=== PATIENT | male | born 1950 | race Caucasian/White ===

== ENCOUNTER 2017-04-19 05:55 | Inpatient (IN) | payer OTHER ==
--- NOTE | 2017-04-18 11:36 | GHP ---
[f rep st] PREOP HISTORY AND PHYSICAL DATE OF ADMISSION: 04/19/2017 HISTORY: The patient is a pleasant 66-year-old gentleman well known to my practice. He is almost 4 years status post a revision lumbar surgery in which I removed the right L5 and S1 pedicle screws, explored the fusion, and then he underwent an L2-3 and L3-4 laminectomy with TLIF and posterior re-i nstrumentation on the left from L2-S1 and on the right L2-L4. Postoperatively, the patient did very well and states his preoperative pain resolved well. He was doing overall quite good until about a year ago he began having bilateral lower extremity weakness, worse with ambulation. He has noticed a very forward flexed position and posture. He has denied loss of bowel and bladder control. He h as significant bilateral leg pain, and on a 1-10 scale rates it between a 2 and a 9. He has tried n onoperative treatments that have not given him any relief. His MRI shows severe junctional spinal s tenosis at L1-2, at the level of the conus medullaris and beginning of the cauda equina. The other levels below were well decompressed and fused. The patient is being admitted for revision surgery, and add on of decompression laminectomy L1-2 with TLIF, and then posterior fusion with add on of ins trumentation from L1-S1 on the left and L1-L4 on the right. SOCIAL HISTORY: Negative for tobacco, and positive for use of alcohol. Patient lives in [facility]. FAMILY HISTORY: Diabetes mellitus and heart disease. PAST MEDICAL HISTORY: Sleep apnea, in which he uses CPAP, hyperlipidemia. PAST SURGICAL HISTORY: Significant for a prior L4-S1 laminectomy posterior fusion with instrumentat ion and TLIF by another surgeon, as well as an L2-L4 laminectomy TLIF with posterior instrumentation by me 4 years ago. ALLERGIES: Sulfa. MEDICATIONS: Zyrtec and Tylenol. PHYSICAL EXAM: The patient is 5 feet 7 inches tall and weighs 188 pounds. GENERAL: He is alert an d oriented x3. CARDIAC: Regular rate and rhythm without detectable murmur, rub or gallop. LUNGS: Clear to auscultation. ABDOMEN: Benign with good bowel sounds throughout. NEUROLOGIC: Exam show s his strength of bilateral lower extremities to be 5/5 throughout, with the exception of the right plantar flexors are 4+/5. Extension of the lumbar spine worsens his symptoms. He has a very forwar d flexed gait. Sensation is diminished in the posterior left thigh. There is no clonus, and toes a re downgoing on Babinski bilaterally. Straight leg raising is negative x2. Lumbar wound is well he aled without signs of infection. IMAGING: MRI shows severe junctional stenosis at L1-2. He has what appears to be a good solid fusi on from L2-S1, with instrumentation intact. IMPRESSION: 1. Junctional severe spinal stenosis, L1-2. 2. Neurogenic claudication bilateral lower extremities. 3. Status post 2 prior lumbar surgeries, with most recent being L2-S1 posterior instrumentation and L2-L4 TLIF. PLAN: The patient will undergo a revision surgery in the form of an L1-2 laminectomy transforaminal lumbar interbody fusion and add on to the left L2-S1 and right L2-L4 instrumentation posteriorly. He will need rehabilitation and possibly SNF postoperatively, as he is living alone, getting a divor ce, and does not have any assistance postoperatively. Potential risks, benefits, possible complicat ions have been discussed with the patient including, but not limited to, dural tear with CSF leak, m eningitis, nerve root injury, partial or complete paralysis, infection, need for further surgery, ju nctional breakdown, DVT, PE, pneumonia, stroke, heart attack, hemorrhage, blindness, and . Naima patel's questions have been answered thoroughly. He will be n.p.o. after midnight tonight. /[id number]/MODL
[2017-04-19] MEDS ORDERED: LIDOCAINE 1% 2 ML INJ ONE (06:40)
[2017-04-19] MEDS ORDERED: THROMBIN (BOVINE) 20,000 UNIT VIAL TP ONE (06:50)
[2017-04-19] MEDS ORDERED: BACITRACIN 50,000 UNITS/10 ML SYR IRR ONE (06:50)
[2017-04-19] MEDS ORDERED: CITRATE DEXTROSE SOLN 500 ML BAG ONE (06:50)
[2017-04-19] MEDS ORDERED: BUPIVACAINE 0.25% 30 ML SDV ONE (06:50)
[2017-04-19] MEDS ORDERED: AVITENE POWDER 1 GM JAR TP ONE (06:50)
[2017-04-19] MEDS ORDERED: LR 1,000 ML IV ONE (06:57)
[2017-04-19] MEDS ORDERED: LIDOCAINE 1% 5 ML SDV ID PRN (06:57)
[2017-04-19] MEDS ORDERED: GENTAMICIN 80 MG/NACL 100 ML IV ONE (07:00)
[2017-04-19] MEDS ORDERED: ceFAZolin 2 GM/DEXTROSE 100 ML IV ONE (07:00)
[2017-04-19] MEDS ORDERED: REMIFENTANIL HCL 1 MG VIAL ONE ×2 (07:04→09:25)
[2017-04-19] MEDS ORDERED: PROPOFOL 200 MG/20 ML VIAL ONE (07:04)
[2017-04-19] MEDS ORDERED: fentaNYL 100 MCG/2 ML INJ ONE ×2 (07:04→09:38)
[2017-04-19] MEDS ORDERED: PROPOFOL/EMULSION 500 MG/50 ML BOTTLE IV ONE ×2 (07:04→09:26)
[2017-04-19] MEDS ORDERED: MIDAZOLAM 2 MG/2 ML VIAL ONE (07:08)
[2017-04-19] MEDS ORDERED: ROCURONIUM 50 MG/5 ML VIAL ONE ×2 (07:08→08:12)
[2017-04-19] MEDS ORDERED: LIDOCAINE 2% 100 MG/5 ML SYR ONE (07:08)
[2017-04-19] MEDS ORDERED: PHENYLEPHRINE 10 MG/ML SDV ONE (07:45)
[2017-04-19] MEDS ORDERED: ONDANSETRON 4 MG/2 ML VIAL ONE (08:23)
[2017-04-19] MEDS ORDERED: DEXAMETHASONE 4 MG/ML VIAL ONE (08:23)
[2017-04-19] MEDS ORDERED: ceFAZolin 1 GM VIAL ONE (09:28)
[2017-04-19] MEDS ORDERED: morphINE PF 5 MG/10 ML INJ ONE (09:38)
[2017-04-19] MEDS ORDERED: HYDROmorphONE/DILAUDID 2 MG/ML INJ ONE (11:47)
[2017-04-19] MEDS ORDERED: LACTULOSE 20 GM/30 ML UDCUP PO PRN (11:55)
[2017-04-19] MEDS ORDERED: DIAZEPAM 10 MG/2 ML SYR IVP PRN (11:55)
[2017-04-19] MEDS ORDERED: ACETAMINOPHEN 325 MG TAB PO PRN (11:55)
[2017-04-19] MEDS ORDERED: diphenhydrAMINE 25 MG CAP PO PRN (11:55)
[2017-04-19] MEDS ORDERED: MAGNESIUM HYDROXIDE 30 ML UDCUP PO PRN (11:55)
[2017-04-19] MEDS ORDERED: PROCHLORPERAZINE MALEATE 10 MG TAB PO PRN (11:55)
[2017-04-19] MEDS ORDERED: OXYCODONE/APAP 5/325 TAB PO PRN (11:55)
[2017-04-19] MEDS ORDERED: HYDROmorphONE/DILAUDID 1 MG/ML SYR IVP PRN (11:55)
[2017-04-19] MEDS ORDERED: POLYETHYLENE GLYCOL 3350 17 GM PKT PO PRN (11:55)
[2017-04-19] MEDS ORDERED: ONDANSETRON DISINTEGRATING 4 MG TAB PO PRN (11:55)
[2017-04-19] MEDS ORDERED: ONDANSETRON 4 MG/2 ML VIAL IVP PRN (11:55)
[2017-04-19] MEDS ORDERED: BISACODYL 10 MG SUPP PR PRN (11:55)
--- NOTE | 2017-04-19 11:55 | POSTOPPROG ---
Post Op Note Date of Operation: 04/19/17 Surgeon: Tanika Bustillo Open Winder: Gordo Conteh SA Anesthesiologist: MD Natalya Anesthesia: GET(General Endotracheal) Pre-op Diagnosis: severe junctional stenosis L1-2 & spondylolisthesis s/P L2-S1 pfi Post-op Diagnosis: same Indication: bilat leg pain and weakness Procedure: L1-2 lami, tlif, add on fusion to prior L2-S1, instrum. Findings: severe stenosis L1-2, spondylolisthesis. Solid fusion L2-S1 Inf/Abcess present in the surg proc area at time of surgery?: No Depth: Deep Incisional (Fascial) EBL: 150 cc Total fluids administered: 1400 cc Complications: None. No changes in SSEPs, MEPs, EMGs. Drains: Willem Sow
[2017-04-19] MEDS ORDERED: D5W 1/2 NS W/ 20 KCl/L 1,000 ML IV SCH (12:00)
[2017-04-19] MEDS ORDERED: CETIRIZINE 10 MG TAB PO PRN (12:01)
--- NOTE | 2017-04-19 14:31 | GOP ---
[f rep st] OPERATIVE REPORT DATE OF OPERATION: 04/19/2017 SURGEON: Tanika Leyva MD SWITCH ADJUSTER: Nathan Conteh SA. ANESTHESIA: General endotracheal intubation. ANESTHESIOLOGIST: Juancarlos Hoang MD. PREOPERATIVE DIAGNOSIS: 1. Severe spinal stenosis, L1-L2, with neurogenic claudication. 2. Grade 1 spondylolisthesis, L1-L2. 3. Four years status post L2-L4 laminectomies, transforaminal lumbar interbody fusion, exploration of previous fusion and instrumentation from L2-S1 on the left and L2-L4 on the right. POSTOPERATIVE DIAGNOSIS: 1. Severe spinal stenosis, L1-L2, with neurogenic claudication. 2. Grade 1 spondylolisthesis, L1-L2. 3. Four years status post L2-L4 laminectomies, transforaminal lumbar interbody fusion, exploration of previous fusion and instrumentation from L2-S1 on the left and L2-L4 on the right. PROCEDURE PERFORMED: 1. Exploration of lumbar fusion, L2-S1. 2. L1-2 complete laminectomy and complete facetectomies. 3. Transforaminal lumbar interbody fusion, L1-2. 4. Placement of intrathecal Duramorph 0.2 mg and 25 mcg of intrathecal fentanyl for postoperative p ain control. 5. L1-L2-S1 posterior instrumentation on the left and L1-L4 on the right, and L1-2 posterolateral a rthrodesis using bone morphogenic protein, crushed cancellous bone graft and demineralized bone matr ix and autograft locally. FINDINGS: Severe junctional stenosis at L1-2 with severe facet hypertrophy and arthropathy and a gr tomeka 1 spondylolisthesis at L1-L2. ESTIMATED BLOOD LOSS: 150 cc. INDICATIONS: The patient is a pleasant 66-year-old gentleman well known to my practice. Four years ago he underwent a revision surgery which was L2-L4 laminectomies with TLIF and posterior fusion wi th instrumentation adding on to prior L4-S1 instrumentation. He had done very well up until the year. He began having bilateral lower extremity weakness with ambulation and increasing pain. On MRI and x-rays, he was found to have a grade 1 spondylolisthesis, degenerative in nature at L1-2 wi th severe spinal stenosis at L1-2 which was at the conus medullaris level. He has elected to underg o surgery. No guarantees were given in regard to surgical outcome. Potential risks, benefits, poss ible complications have been thoroughly discussed including, but not limited to dural tear with CSF leak, meningitis, nerve root injury, partial or complete paralysis, infection, need for further surg marilee, dural tear, DVT, PE, pneumonia, stroke, heart attack, hemorrhage, blindness, and . DESCRIPTION OF PROCEDURE: After obtaining written and verbal consent from the patient, he was broug ht to the operating room where he underwent general endotracheal intubation. Patient was rolled to the prone position on the Willem table. All 4 extremities were padded well. The face and eyes wer e padded per the anesthesiologist. The lumbar spine was prepped and draped in the normal sterile fa shion. A timeout was performed with the entire operating room team, confirming patient's name, date of , planned surgical procedure including levels, antibiotics given, and allergies to medicati ons. A midline posterior longitudinal incision through skin was made from approximately L1-S1. The incis ion was brought down through skin and subcutaneous tissues into the overlying dorsal fascia. Parasp inal muscles were stripped in subperiosteal fashion. The previous internal fixation on the left fro m L2-S1 was visualized and inspected. There was no evidence of nonunion or loosening. The instrume ntation on the right was L2-L4, and this too had a good solid arthrodesis without loosening. The lo cking caps of the aforementioned pedicle screws were removed, and the rods were removed. Then, usin g intraoperative neural monitoring stimulation with the NIM probe each of the pedicle screws that godoy d been previously placed were stimulated and were excellent at greater than 20 mA. Then, the intrao perative O-arm was utilized with a reference frame at the T12 spinous process and an AP and a latera l fluoroscopic view were obtained followed by a CT scan 3-dimensional spin. Using this then for ref erence, pedicle screw sites were identified bilaterally at L1. It should be mentioned that the O-ar m accuracy was a couple of mm off and therefore basic anatomic landmarks which were the midline of t he transverse process and the intersection of the lateral border of the facet joints was utilized an d accurate. A 3 mm round bur was used to create starting holes for the pedicle screws, and then a g earshift connected to the O-arm monitoring was utilized to probe the pedicle screw sites. Good bone was felt circumferentially around the entire depth of the proposed pedicle screw site bilaterally a t L1. Then, at this time, decortication was performed using a rat-toothed rongeur from L1-L2 along the transverse prostheses and allograft and demineralized bone matrix were packed in a posterolatera l position to augment arthrodesis at L1-2. Then, screws were placed on the left. A 6.5 x 50 mm red uction screw was placed. This stimulated to 20 mA. Then, the right screw was placed and initially stimulated to 8 management, but after repositioning stimulated to greater than [address] scan spi n was performed using the O-arm, and the right L1 screw was in excellent position. The left L1 scre w appeared to be about 1 mm medial. Therefore the screw was removed, and a ball-tip probe was used to palpate the entire depth of the pedicle screw site, and it had excellent bone contact circumferen tially around the entire depth of the screw site, and there was no soft tissue breach. Therefore th e same screw was placed back in, which was a 5.5 x 50 mm reduction screw by [employer]. This stimulated to 20 milliamps. Then, at this time, a willian on the right measuring 120 mm in length, which was pre-cut and pre contoured, was placed into the screw heads from L1-L4 an d tightened down with 4 new locking caps. Then, a 400 mm, 5.5 mm titanium willian was cut appropriately and placed on the left from L1-S1. Locking caps were placed. A counter torque and torque wrench w ere then used to tighten the caps finally from L1-S1 on the left and L1-L4 on the right. At this time, under loupe magnification, a laminectomy was performed at L1-2. There was a moderate amount of epidural fibrosis from the patient's previous surgery. A complete facetectomy was perform ed using a rongeur and a 5 mm round bur bilaterally at L1-2. Foraminal stenosis was noted bilateral ly which was moderate at the L1-2 level. 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 It was gradually freed up. Then, starting on t he left at L1-2, while protecting the conus medullaris and dura as well as the left L1 nerve root. A Love nerve root retractor was used to protect both with the nerve root and the midline thecal sac. A 15-blade knife was used to create an annulotomy at the L1-2 disk space. The disk was moderately degenerative and was removed via piecemeal. Trials were utilized after mitch were used to prep t he endplates and the best fitting trial was a 9 mm. Therefore, a 10 x 27 x 9 mm lordotic lucent-TiB ond porous-coated PEEK cage was prepared using autograft mixed with demineralized bone matrix. It w as tamped into position at L1-L2 with no changes in spinal cord monitoring. It should be noted that intraoperative somatosensory-evoked potentials, motor-evoked potentials, and EMGs were being perfor med. Then, the exact same thing was done on the right, but because of the circuitous path of the [facility] L1 nerve root, while taking care to protect it carefully, the side bone graft that I felt comfor table placing was an 8 mm. This did not cause any changes in spinal cord monitoring. A Fleming was then used to palpate the PEEK cages which were lucent-TiBond porous-coated PEEK cages from [employer], and these were recessed anterior to the vertebral endplates of L1 and L2 and recessed anter ior to the posterior vertebral body. Bone had been packed in the L1-2 interspace prior to placement of the TLIF PEEK cages. Then, at this time, further bone graft was used to augment the fusion post erolaterally, including BMP and bone morphogenic protein. At this time, 0.2 mg of intrathecal Duram orph and 25 mcg of intrathecal fentanyl were placed in the subarachnoid space using a TB syringe and a 30-gauge needle for postoperative pain control. Another AP and a lateral fluoroscopic x-ray show ed good position of the PEEK cages at L1-2. The instrumentation from L1-S1 on the left and L1-L4 on the right were in good position. A 10 flat PARVEZ drain was placed deep to the fascial layer and sewn in with a 2-0 nylon suture. Hemostasis was obtained to the best of our ability, and then the #1 Vel ryl was used to close the deep fascial layer, followed by an 0 Vicryl and then 2-0 undyed Vicryl. I t should be mentioned that 0.2 mg of intrathecal Duramorph and 25 mcg of intrathecal fentanyl were p laced in the subarachnoid space prior to closure for postoperative pain control as well. After the wound was closed, sterile dressing was applied after domenica were placed. The patient was rolled to the supine position. A Cruz catheter was left in and brace was on. He was extubated in the opera ting room and brought to the recovery room in satisfactory condition. COMPLICATIONS: None. There were no changes in intraoperative neural monitoring. POSTOPERATIVE PLAN: Close neurologic observation, close airway observation, and PT and OT and pain control. IMPLANTS: [employer] Classic pedicle screws which were reduction screws and lucent-TiB ond porous-coated PEEK cages. /[id number]/MODL
[2017-04-19] MEDS: HYDROCODONE/APAP 10/325 TAB PO PRN ×2 (15:06→18:23)
[2017-04-19] MEDS: DIAZEPAM 5 MG TAB PO PRN (18:23)
[2017-04-19] MEDS: MONTELUKAST SODIUM 10 MG TAB PO SCH (18:23)
[2017-04-19] MEDS: IPRATROPIUM 0.06% NASAL SPRAY EACHNARE SCH ×2 (18:24→21:53)
[2017-04-19] MEDS: morphINE SR 15 MG TAB PO SCH (21:49)
[2017-04-19] MEDS: SENNOSIDES/DOCUSATE SODIUM TAB PO SCH (21:49)
[2017-04-20] MEDS: DIAZEPAM 5 MG TAB PO PRN ×2 (03:08→22:42)
[2017-04-20] MEDS: HYDROCODONE/APAP 10/325 TAB PO PRN ×4 (03:08→18:11)
[2017-04-20] MEDS: SENNOSIDES/DOCUSATE SODIUM TAB PO SCH ×2 (09:21→20:09)
[2017-04-20] MEDS: morphINE SR 15 MG TAB PO SCH ×2 (09:21→20:09)
[2017-04-20] MEDS: IPRATROPIUM 0.06% NASAL SPRAY EACHNARE SCH ×2 (09:21→16:59)
[2017-04-20] MEDS ORDERED: DEXAMETHASONE 10 MG/ML VIAL IVP ONE (12:45)
--- NOTE | 2017-04-20 15:57 | SOAPPROG ---
SOAP Progress Note Assessment/Plan: Assessment: post op day 1, s/p L1-2 lami, tlif, add on fusion to L2-S1 with instrum. Pt doing well. Plan: No b.m. so will give mirilax and start iv Reglan. Suppository if needed. Cont PT and OT. Pain reasonably controlled. 04/20/17 15:55 Subjective: Pt concerned about numbness on plantar aspect of R foot. Slightly worse than preop. Objective: Vital Signs Temp Pulse Resp BP Pulse Ox 37.3 C 92 16 100/57 L 91 L 04/20/17 15:35 04/20/17 15:35 04/20/17 15:35 04/20/17 15:35 04/20/17 15:35 04/19/17 04/20/17 04/21/17 05:59 05:59 05:59 Intake Total 3290 Output Total 4974 430 Balance -1695 -430 BLE motor 5/5. Pal's negative x 2. Lt touch decreased bilat R greater than L plantar foot. ICD10 Worksheet Patient Problems: Problems Problem Status Onset Lumbar stenosis with neurogenic claudication Acute - ICD10 Problem Qualifiers (1) Lumbar stenosis with neurogenic claudication
[2017-04-20] MEDS: POLYETHYLENE GLYCOL 3350 17 GM PKT PO SCH (16:59)
[2017-04-20] MEDS: METOCLOPRAMIDE 10 MG/2 ML VIAL IVP SCH ×2 (18:10→23:02)
[2017-04-20] MEDS: MONTELUKAST SODIUM 10 MG TAB PO SCH (18:11)
[2017-04-21] MEDS: HYDROCODONE/APAP 10/325 TAB PO PRN ×3 (00:49→20:29)
[2017-04-21] MEDS: IPRATROPIUM 0.06% NASAL SPRAY EACHNARE SCH ×4 (01:49→20:31)
[2017-04-21] MEDS: METOCLOPRAMIDE 10 MG/2 ML VIAL IVP SCH ×3 (05:47→17:29)
[2017-04-21] MEDS: POLYETHYLENE GLYCOL 3350 17 GM PKT PO SCH ×2 (09:25→20:28)
[2017-04-21] MEDS: morphINE SR 15 MG TAB PO SCH ×2 (09:25→20:29)
[2017-04-21] MEDS: SENNOSIDES/DOCUSATE SODIUM TAB PO SCH ×2 (09:25→20:29)
--- NOTE | 2017-04-21 15:37 | SOAPPROG ---
SOAP Progress Note Assessment/Plan: Assessment: post op day 1, s/p L1-2 lami, tlif, add on fusion to L2-S1 with instrum. Pt doing well. Plan: No b.m. so will give mirilax and start iv Reglan. Suppository if needed. Cont PT and OT. Pain reasonably controlled. 04/20/17 15:55 04/21/17 15:34 post op day 2, s/p L1-2 lami, tlif, fusion L1-S1 w/ instrumentation. Pt doing well. Will be ready for SNF tomorrow. Plan: d/c rider. I and O cath q 6 hrs prn no void. Pt will need a dulcolox suppository for bm. Subjective: Pt states numbness on plantar r foot decreasing. Pain "well controlled". Had a shower today. Objective: Vital Signs Temp Pulse Resp BP Pulse Ox 36.4 C 78 13 104/68 95 04/21/17 11:03 04/21/17 11:03 04/21/17 11:03 04/21/17 11:03 04/21/17 11:03 04/20/17 04/21/17 04/22/17 05:59 05:59 05:59 Intake Total 3290 4100 Output Total 4931 8225 1240 [facility] -0145 -6464 -1240 Lumbar wound clean and dry. no sign of infection. Drain removed without difficulty. BLE motor 5/5. Pal's negative x 2. ICD10 Worksheet Patient Problems: Problems Problem Status Onset Lumbar stenosis with neurogenic claudication Acute - ICD10 Problem Qualifiers (1) Lumbar stenosis with neurogenic claudication
[2017-04-21] MEDS: MONTELUKAST SODIUM 10 MG TAB PO SCH (17:29)
[2017-04-22] MEDS: METOCLOPRAMIDE 10 MG/2 ML VIAL IVP SCH ×3 (01:23→11:47)
[2017-04-22] MEDS: HYDROCODONE/APAP 10/325 TAB PO PRN (07:27)
[2017-04-22 07:40] VITALS: O2SAT 93
[2017-04-22] MEDS: SENNOSIDES/DOCUSATE SODIUM TAB PO SCH (09:06)
[2017-04-22] MEDS: morphINE SR 15 MG TAB PO SCH (09:06)
[2017-04-22] MEDS: POLYETHYLENE GLYCOL 3350 17 GM PKT PO SCH (09:07)
[2017-04-22] MEDS: IPRATROPIUM 0.06% NASAL SPRAY EACHNARE SCH (09:08)
--- NOTE | 2017-04-22 14:48 | SOAPPROG ---
SOAP Progress Note Assessment/Plan: Assessment: post op day 1, s/p L1-2 lami, tlif, add on fusion to L2-S1 with instrum. Pt doing well. Plan: No b.m. so will give mirilax and start iv Reglan. Suppository if needed. Cont PT and OT. Pain reasonably controlled. 04/20/17 15:55 04/21/17 15:34 post op day 2, s/p L1-2 lami, tlif, fusion L1-S1 w/ instrumentation. Pt doing well. Will be ready for SNF tomorrow. Plan: d/c rider. I and O cath q 6 hrs prn no void. Pt will need a dulcolox suppository for bm. 04/22/17 14:46 post op day 3, s/p L1-2 lami, TLIF, add on fusion to prior L2-S1/ with instrumentation. Pt ready for SNF transfer. Subjective: Pt states he hasn't had a full BM yet. No abdominal pain. +flatus. Objective: Vital Signs Temp Pulse Resp BP Pulse Ox 37.6 C 105 H 14 95/57 L 93 04/22/17 07:36 04/22/17 07:36 04/22/17 07:36 04/22/17 07:36 04/22/17 07:36 04/21/17 04/22/17 04/23/17 05:59 05:59 05:59 Intake Total 4100 840 240 Output Total 8245 2590 950 Balance -9944 -3947 -795 Lumbar wound clean and dry. No signs of infection. BLE motor 5/5. Pal's negative x 2. Decreased sensation R plantar foot. ICD10 Worksheet Patient Problems: Problems Problem Status Onset Lumbar stenosis with neurogenic claudication Acute - ICD10 Problem Qualifiers (1) Lumbar stenosis with neurogenic claudication
--- NOTE | 2017-04-22 14:56 | PDIAF ---
- Diagnosis Diagnosis: s/p L1-2 lami, TLIF, add on fusion/Instrum L1-S1. Code Status: Full Code - Medication Management Discharge Medications: Medications to Continue on Transfer Cetirizine [ZyrTEC 10 mg (*)] 10 mg PO DAILY PRN MDD ALLERGIES 03/21/17 [Last Taken 04/18/17] Ipratropium 0.06% Nasal [Atrovent 0.06% Nasal] 2 sprays EACHNARE TID 03/21/17 [ Last Taken 04/12/17] Montelukast Sodium [Singulair 10 mg (*)] 10 mg PO DAILY@1800 03/21/17 [Last Taken 04/12/17] Acetaminophen [Tylenol 325mg (*)] 325 - 650 mg PO Q4HRS PRN #0 tab 04/22/17 [ Last Taken Unknown] Cetirizine [ZyrTEC 10 mg (*)] 10 mg PO DAILY PRN #0 tab 04/22/17 [Last Taken Unknown] Diazepam [Valium 5 MG (*)] 5 mg PO Q8 PRN #30 tab 04/22/17 [Last Taken Unknown] HYDROcodone/APAP 10/325 [[place] 10/325 (*)] 1 - 2 tab PO Q6HRS PRN #0 tab [Last Taken Unknown] Ipratropium 0.06% Nasal [Atrovent 0.06% Nasal] 2 sprays EACHNARE TID #0 mdi 09/28 [Last Taken Unknown] Montelukast Sodium [Singulair 10 mg (*)] 10 mg PO DAILY@1800 #0 tab 04/22/17 [ Last Taken Unknown] Polyethylene Glycol 3350 [Miralax 17 gm (*)] 17 gm PO DAILY #0 pkt 04/22/17 [ Last Taken Unknown] Polyethylene Glycol 3350 [Miralax 17 gm (*)] 17 gm PO DAILY PRN #0 pkt 04/22/17 [Last Taken Unknown] Sennosides/Docusate Sodium [Senokot-S] 1 - 2 tab PO BID #0 tab 04/22/17 [Last Taken Unknown] morphINE SR [Ms Contin/Oramorph 15 mg (*)] 15 mg PO BID #0 tab 04/22/17 [Last Taken Unknown] oxyCODONE/APAP 5/325 [Percocet 5/325 (*)] 1 - 2 tab PO Q4HRS PRN #60 tab [Last Taken Unknown] Longterm Antibiotics: none Discharge Medications: Refer to the Discharge Home Medication list for PRN reason. PICC Care - Routine: N/A - Orders Services needed: Registered Nurse, Master Business Analysis Consultant, Physical Therapy, Occupational Therapy Home Care Face to Face: 04/22/17 Oxygen: prn to keep sats greater than 90% Diet Recommendation: no restrictions on diet Diet Texture: Regular Texture Diet Cruz: No Lakhwinder Stockings Discontinue Date: Approx. 04/29/17 Wound Care Instructions: Daily dry dressing change. NO ointment. Pt to shower daily. Remove brace and dressing to lumbar wound, shower pt, apply clean dry dressing/gauze to wound. Sutures/Alan Site: Pt has f/u appt with MD on 05/08/17 at 10 am Activity/Weight Bearing Restrictions: No bending, twisting, lifting. - Follow Up Care
--- NOTE | 2017-04-22 15:35 | GDS ---
[f rep st] TRANSFER SUMMARY Patient is being transferred to [facility]. HOSPITAL COURSE: The patient is a pleasant 66-year-old gentleman who is well known to my practice. Many years ago, he underwent surgery by another surgeon in the lumbar region which was an L4 to S1 posterior fusion with instrumentation. Four years ago, he underwent a revision surgery by myself wh ich included L2 to L4 laminectomies, fusion, and instrumentation. He has done well up until the pas t year. He began having bilateral lower extremity weakness with ambulation and increasing pain. On x-ray and MRI, he was found to have a grade 1 spondylolisthesis at L1-2 with severe spinal stenosis . He had tried numerous nonoperative treatments and ultimately elected to undergo surgery. On 04/19/2017, patient was admitted to the hospital. Under general anesthetic, the patient's previo us fusion was explored from L2 to S1 which showed a solid fusion. He underwent a laminectomy at L1- 2 with a transforaminal lumbar interbody fusion at L1-2 and then posterolateral arthrodesis and add- on instrumentation from L1-2 which then added on to the S1 level on the left and L4 on the right. I ntrathecal narcotics were used for postoperative pain control, and a drain had been placed. Intraop erative neuromonitoring remained normal without any significant changes. Postoperatively, the patient's pain was very well controlled on MS Contin 15 mg 1 p.o. b.i.d., Giltner 5 mg 1-2 p.o. q.4-6 hours p.r.n. pain, and Valium 5 mg p.o. q.h.s. p.r.n. He was kept on IV antibi otics until the lumbar drain was removed which occurred on postoperative day 2 without difficulty. The patient did have difficulty with urination. Cruz catheter had been removed, and the patient wa s unable to void with a large residual and, therefore, a catheter was placed again. Ultimately, the catheter was removed again, and the patient was able to void independently without any significant residual problems. The patient was tolerating a regular diet upon discharge. He has had Reglan IV, Senokot, and Dulcol ax suppository and had flatus and had a small amount of bowel movement with a suppository, but may n eed further aggressive treatment regarding that including possible enema. Neurologically the patient noted some increased tingling and numbness in the right plantar foot, but this began to slowly improve prior to discharge. His strength of bilateral lower extremities impro juan manuel, and he was seen in PT and OT. He is being transferred to [facility] nursing [facility] for continued inpatient care including physical therapy, occupational therapy, and retirement. Patient lives with his who is at work all the time and, therefore, is not able to care for the patient. I anticipate the patient to need approximately 2 weeks of retirement. He has a followup appointment with me in my office in [place] on May 08 at 10 a.m. In the meantime, his domenica need to remain intact. He needs a daily dry dressing change. I would recommend a daily shower. The nursing staff should remove his l umbar brace, remove the lumbar bandage, and then allow the patient to shower. After showers, the wo und should be dried, and a clean, dry gauze dressing should be placed. There should be no ointment on the wound. He does not require any further antibiotics. I would recommend continuing MS Contin 15 mg 1 p.o. twice daily; however, I have encouraged the patient to gradually decrease his Giltner int irwin. Also the Valium should only be at night on a p.r.n. basis and not during the day. The patient needs to wear his lumbar brace at all times except for during the showers. He needs to avoid bending, lifting, and twisting and cannot have any anti-inflammatories. As mentioned, the patient has a followup appointment with myself, Dr. Leyva, on May 08 at 1 0 a.m. at the [place] office at [address] [place] [address], [address]. Please call my office if you have a ny concerns or questions regarding patient's continued care. /[id number]/MODL
[2017-04-22 15:58] VITALS: BP 115/75; PULSE 98; RESP 18; TEMP 99.2
== END 2017-04-22 17:07 | DRG 460 ==
LOC: F3N 05:55
PROVIDERS: ADMIT Orthopaedic Surgery Orthopaedic Surgery of the Spine; ATTEND Orthopaedic Surgery Orthopaedic Surgery of the Spine
DX: M43.16 Spondylolisthesis, lumbar region (principal); M48.06 Spinal stenosis, lumbar region; Z98.1 Arthrodesis status; G47.33 Obstructive sleep apnea (adult) (pediatric); E78.5 Hyperlipidemia, unspecified
CPT/HCPCS: 97116-GP; 97161-GP; 97166-GO; 97535-GO; C1713; C1762; G8978-GP-CI; G8979-GP-CI; G8987-GO-CK; G8988-GO-CI; J0690; J1100; J1170; J1580; J2001; J2250; J2274; J2370; J2405; J2704; J2765; J3010; J7060

== ENCOUNTER 2017-04-22 20:10 | Inpatient (IN) | payer OTHER ==
--- NOTE | 2017-04-22 20:14 | EDPHY ---
H & P HPI/ROS: HPI CHIEF COMPLAINT: Chills, diaphoresis, recent discharge from hospital HISTORY OF PRESENT ILLNESS: This patient very pleasant 58-year-old male on or approximately 4 days ago he had back surgery with fusion of L1 he tells me he is now fused from S1-L1. Dr. Bustillo did his surgery. He was discharged approximately 4 hours ago to rehab. Presents back to the emergency room because of chills and diaphoresis and possible fever. He tells me that he has no significant complaint other than some dysuria when he urinated some discomfort in his suprapubic region prior to arrival. He denies nausea vomiting. Denies severe back pain. Denies shortness of breath or chest pain, denies productive cough. Past Medical History: Spinal stenosis, obstructive sleep apnea Past Surgical History: Recent back fusion Social History: Denies daily use of drugs alcohol tobacco products Family History: Noncontributory ROS REVIEW OF SYSTEMS: A comprehensive 10 point review of systems is otherwise negative aside from elements mentioned in the history of present illness. Exam Constitutional appears well nontoxic, triage nursing summary reviewed, vital signs reviewed, awake/alert. 89%RA Eyes normal conjunctivae and sclera, EOMI, PERRLA. HENT normal inspection, atraumatic, moist mucus membranes, no epistaxis, neck supple/ no meningismus, no raccoon eyes. Respiratory clear to auscultation bilaterally, normal breath sounds, no respiratory distress, no wheezing. Cardiovascular rate normal, regular rhythm, no murmur, no edema, distal pulses normal. Gastrointestinal soft, non-tender, no rebound, no guarding, normal bowel sounds, no distension, no pulsatile mass. Genitourinary no CVA tenderness. Musculoskeletal no midline vertebral tenderness, full range of motion, no calf swelling, no tenderness of extremities, no meningismus, good pulses, neurovascularly intact. Skin Back: Midline incision domenica in place no significant cellulitis or redness or drainage, pink, warm, & dry, no rash, skin atraumatic. Neurologic awake, alert and oriented x 3, AAOx3, moves all 4 extremities equally, motor intact, sensory intact, CN II-XII intact, normal cerebellar, normal vision, normal speech. Psychiatric normal mood/affect. Heme/Lymph/Immune no lymphadenopathy. Differential Diagnosis: Includes but is not limited to in a particular order, sepsis, urinary tract infection, pneumonia, atelectasis, postoperative fever, DVT, PE, soft tissue infection Medical Decision Making: Plan for this patient IV establishment, blood work including lactic acid, blood cultures, check midline lumbar incision, check urinalysis, chest x-ray, evaluate for source of possible fever postoperatively. Re-evaluation: ED x-ray chest two view: Linear atelectasis. No focal pneumonia. 2127: Patient on room air sat 85%. Given that the patient has a Right lower lobe atelectasis post surgery and had general anesthesia. Recent back surgery I will check for pulmonary embolism patient had a CT angiogram of his chest this will help delineate his lung parenchyma as well. Reason for this is hypoxic , recent surgery. 5: Patient's CT angiogram shows no pulmonary embolism however shows right lower lobe, right middle lobe atelectasis versus early pneumonia. 2225: This patient's CT scan shows pneumonia. IV Rocephin IV azithromycin been ordered. Due to the patient's leukocytosis, hypoxia, recent surgery patient need to be admitted to the hospitalist service 1. dehydration, 2. hypoxic, 3. pneumonia. I have updated the patient is fine with this plan Source: Patient, EMS - Personal History Tetanus Vaccine Date: 2009 - Medical/Surgical History Hx Diabetes: No Other PMH: Hyperlipidemia, Spinal stenosis, Lumbar fusion 5 years ago, CLEMENTINA - Social History Smoking Status: Never smoked Constitutional: Initial Vital Signs O2 Sat (%) 95 04/22/17 20:18 O2 Delivery Mode Nasal Cannula O2 (L/minute) 1.5 Allergies/Adverse Reactions: Sulfa (Sulfonamide Antibiotics) Allergy (Verified 04/22/17 20:24) RASH/FLU LIKE SYMPTOMS ENVIRONMENTAL Allergy (Mild, Uncoded 07/02/13 10:25) RUNNY NOSE/SNEEZING Home Medications: Medication Instructions Recorded Acetaminophen [Tylenol 325mg (*)] 325 - 650 mg PO Q4HRS PRN #0 tab 04/22/17 Montelukast Sodium [Singulair 10 10 mg PO DAILY@1800 #0 tab 04/22/17 mg (*)] Polyethylene Glycol 3350 [Miralax 17 gm PO DAILY PRN #0 pkt 04/22/17 17 gm (*)] Cetirizine [ZyrTEC 10 mg (*)] 10 mg PO DAILY PRN 04/23/17 Ipratropium 0.06% Nasal [Atrovent 2 sprays EACHNARE BID PRN 04/23/17 0.06% Nasal] Sennosides/Docusate Sodium 1 - 2 tab PO BID PRN 04/23/17 [Senokot-S] Medical Decision Making - Data Points Laboratory Results: Laboratory Results 04/22/17 20:15 04/22/17 20:15 Medications Given: Discontinued Medications Hydromorphone HCl (Dilaudid) 0.5 mg IVP EDNOW ONE Stop: 04/22/17 22:38 Last Admin: 04/22/17 22:43 Dose: 0.5 mg Sodium Chloride (Ns) 1,000 mls @ 0 mls/hr IV ONCE ONE; Wide Open PRN Reason: Protocol Stop: 04/22/17 20:19 Last Admin: 04/22/17 20:45 Dose: 1,000 mls Azithromycin 500 mg/ Dextrose 255 mls @ 255 mls/hr IV DAILY SHERON PRN Reason: Protocol Stop: 05/22/17 22:29 Last Admin: 04/23/17 00:12 Dose: Not Given Ceftriaxone Sodium/Dextrose (Rocephin 1 Gm (Premix)) 50 mls @ 100 mls/hr IV EDNOW ONE PRN Reason: Protocol Stop: 04/22/17 22:53 Last Admin: 04/22/17 22:45 Dose: 50 mls Azithromycin 500 mg/ Dextrose 255 mls @ 255 mls/hr IV EDNOW ONE PRN Reason: Protocol Stop: 04/22/17 23:59 Last Admin: 04/23/17 00:09 Dose: 255 mls Magnesium Citrate (Magnesium Citrate) 300 ml PO ONCE ONE Stop: 04/23/17 09:01 Last Admin: 04/23/17 08:33 Dose: 300 ml Departure - Departure Disposition: [facility] Inpatient Acute Clinical Impression: Hypoxia Pneumonia Qualifiers: Pneumonia type: due to unspecified organism Laterality: right Lung location: lower lobe of lung Qualified Code(s): J18.1 - Lobar pneumonia, unspecified organism Condition: Fair
[2017-04-22] MEDS ORDERED: NS 1,000 ML IV ONE (20:18)
[2017-04-22 20:37] LABS: % IMMATURE GRANULYOCYTES 0.7 % (0.0-1.1); ADD DIFF? NO; ADD MORPH? NO; ADD SCAN? NO; ATYPICAL LYMPHOCYTE FLAG 10 (0-99); COLOR YELLOW; FRAGMENT RBC FLAG 0 (0-99); HEMATOCRIT 36.7 % (40.0-51.0); HEMOGLOBIN 12.4 g/dL (13.7-17.5); LEFT SHIFT FLG 0 (0-99); LEUKOCYTE ESTERASE,URINE NEGATIVE (NEGATIVE); LIPEMIA HEMOLYSIS FLAG 90 (0-99); MEAN CELL HEMOGLOBIN 29.4 pg (27.9-34.1); MEAN CELL HEMOGLOBIN CONCENTR. 33.8 g/dL (32.4-36.7); MEAN PLATELET VOLUME 9.6 fL (8.7-11.7); NITRITE,URINE NEGATIVE (NEGATIVE); PLATELET CLUMPS FLAG 20 (0-99); PLATELET COUNT 259 10^3/uL (150-400); RED BLOOD CELL COUNT 4.22 10^6/uL (4.40-6.38)
[2017-04-22 20:45] LABS: APTT 30.2 SEC (23.0-38.0); INR 1.07 (0.83-1.16); PROTIME(PATIENT) 13.8 SEC (12.0-15.0)
[2017-04-22 20:51] LABS: ALANINE AMINOTRANSFERASE 32 IU/L (21-72); ALBUMIN 3.6 g/dL (3.5-5.0); ALKALINE PHOSPHATASE 47 IU/L (38-126); ANION GAP 10 mEq/L (8-16); ASPARTATE AMINOTRANSFERASE 32 IU/L (17-59); BILIRUBIN,TOTAL 0.9 mg/dL (0.1-1.4); BILIRUBIN-CONJUGATED 0.3 mg/dL (0.0-0.5); BILIRUBIN-UNCONJUGATED 0.6 mg/dL (0.0-1.1); CALCIUM 9.2 mg/dL (8.5-10.4); CARBON DIOXIDE 25 mEq/l (22-31); CHLORIDE 95 mEq/L (97-110); CREATININE 0.8 mg/dL (0.7-1.3); GLOMERULAR FILTRATION RATE > 60; GLUCOSE 131 mg/dL (70-100); POTASSIUM 4.1 mEq/L (3.5-5.2); SODIUM 130 mEq/L (134-144); TOTAL PROTEIN 6.3 g/dL (6.3-8.2)
[2017-04-22 21:03] LABS: CK-MB INTERPRETATION NEGATIVE (NEGATIVE); CREATINE KINASE-MB FRACTION 1.83 ng/mL (0-3.19); TROPONIN I < 0.012 ng/mL (0-0.034)
[2017-04-22] MEDS ORDERED: IOPAMIDOL (ISOVUE 370) 100 ML BTL IV ONE (21:42)
[2017-04-22] MEDS ORDERED: AZITHROMYCIN IV 500 MG in D5W 250 ML IV SCH (22:30)
[2017-04-22] MEDS ORDERED: HYDROmorphONE/DILAUDID 1 MG/ML SYR IVP ONE (22:37)
[2017-04-22] MEDS ORDERED: AZITHROMYCIN IV 500 MG in D5W 250 ML IV ONE (23:00)
[2017-04-22] MEDS ORDERED: ONDANSETRON 4 MG/2 ML VIAL IVP PRN (23:20)
[2017-04-22] MEDS ORDERED: ONDANSETRON DISINTEGRATING 4 MG TAB PO PRN (23:20)
[2017-04-23] MEDS: NS 1,000 ML IV SCH ×2 (00:09→00:12)
--- NOTE | 2017-04-23 00:14 | CPEKG ---
Heart Rate: 87 RR Interval: 690 P-R Interval: 148 QRSD Interval: 94 QT Interval: 352 QTC Interval: 424 P [place]: 38 QRS [place]: -51 T Wave [place]: 25 EKG Severity - ABNORMAL ECG - EKG Impression: SINUS RHYTHM EKG Impression: LEFT ANTERIOR FASCICULAR BLOCK EKG Impression: unchanged from 07/07/2013. Electronically Signed By: Brandon Green 23-Apr-2017 10:38:32
[2017-04-23] MEDS ORDERED: MAGNESIUM HYDROXIDE 30 ML UDCUP PO PRN (02:34)
[2017-04-23] MEDS ORDERED: POLYETHYLENE GLYCOL 3350 17 GM PKT PO PRN ×2 (02:34→11:06)
[2017-04-23] MEDS ORDERED: LACTULOSE 20 GM/30 ML UDCUP PO PRN (02:34)
[2017-04-23] MEDS ORDERED: BISACODYL 10 MG SUPP PR PRN (02:34)
--- NOTE | 2017-04-23 02:39 | PDGENHP ---
History and Physical - Chief Complaint Acute rigors - History of Present Illness primary neurosurgeon: Dr. Bustillo HPI: 66-year-old male presenting with acute rigors characterized as uncontrollable shaking with onset of symptoms at 9:00 a.m. on the day of this presentation and duration approximately 30 minutes with associated subjective fever and chills. Patient reports that he had otherwise been at rest preceding the symptoms and he was about to engage with physical therapy. He had experienced a similar bout of symptoms on the day prior to presentation but of lesser severity and self-limited in nature. He reports ongoing constipation since surgery as well as some burning with urination. He denies any chest pain , denies cough, denies any nausea or vomiting. He has been taking the pain medications as prescribed and has been engaging with physical therapy. History Information - Allergies/Home Medication List Allergies/Adverse Reactions: Sulfa (Sulfonamide Antibiotics) Allergy (Verified 04/22/17 20:24) RASH/FLU LIKE SYMPTOMS ENVIRONMENTAL Allergy (Mild, Uncoded 07/02/13 10:25) RUNNY NOSE/SNEEZING Home Medications: Cetirizine [ZyrTEC 10 mg (*)] 10 mg PO DAILY PRN MDD ALLERGIES 03/21/17 [Last Taken 04/18/17] Ipratropium 0.06% Nasal [Atrovent 0.06% Nasal] 2 sprays EACHNARE TID 03/21/17 [ Last Taken 04/12/17] Montelukast Sodium [Singulair 10 mg (*)] 10 mg PO DAILY@1800 03/21/17 [Last Taken 04/12/17] I have personally reviewed and updated: family history, medical history, social history, surgical history - Past Medical History Additional medical history: Spondylolisthesis with severe spinal stenosis. CLEMENTINA on CPAP. Hyperlipidemia - Surgical History Additional surgical history: 04/19/[address] fusion [address] Bustillo. Previous L2-L4 laminectomy. Previous L4-S1 fusion - Family History Additional family history: diabetes and coronary artery disease - Social History Smoking Status: Never smoked Alcohol Use: None Drug Use: None Additional social history: previously independent in his ADLs having pain with activities Review of Systems ROS: 10pt was reviewed & negative except for what was stated in HPI & below Constitutional: Reports: chills, fever Gastrointestinal: Reports: constipation Physical Exam Temp Pulse Resp BP Pulse Ox 37.0 C 92 18 119/72 95 04/22/17 23:23 04/22/17 23:23 04/22/17 23:23 04/22/17 23:23 04/22/17 23:23 Constitutional: no apparent distress, not in pain, obese, No uncomfortable Eyes: PERRL, anicteric sclera, EOMI Ears, Nose, Mouth, Throat: moist mucous membranes, hearing normal, ears appear normal, no oral mucosal ulcers Cardiovascular: regular rate and rhythym, no murmur, rub, or gallop, other ( occasional ectopic beats), No edema Respiratory: inspiratory crackles ( right mid posterior segment), No reduced air movement, No expiratory wheeze, No bronchial breath sounds, No respiratory distress Gastrointestinal: normoactive bowel sounds, other ( full), No guarding, No distension Genitourinary: no bladder fullness, other ( mild suprapubic tenderness to palpation) Neurologic: AAOx3, sensation intact bilaterally, No weakness ( motor strength 5/ 5 bilateral lower extremities) Psychiatric: interacting appropriately, not anxious, not encephalopathic, thought process linear Lab Data & Imaging Review 04/22/17 20:15 04/22/17 20:15 WBC 13.34 10^3/uL (3.80-9.50) H 04/22/17 20:15 RBC 4.22 10^6/uL (4.40-6.38) L 04/22/17 20:15 Hgb 12.4 g/dL (13.7-17.5) L 04/22/17 20:15 Hct 36.7 % (40.0-51.0) L 04/22/17 20:15 MCV 87.0 fL (81.5-99.8) 04/22/17 20:15 MCH 29.4 pg (27.9-34.1) 04/22/17 20:15 MCHC 33.8 g/dL (32.4-36.7) 04/22/17 20:15 RDW 14.0 % (11.5-15.2) 04/22/17 20:15 Plt Count 259 10^3/uL (150-400) 04/22/17 20:15 MPV 9.6 fL (8.7-11.7) 04/22/17 20:15 Neut % (Auto) 81.3 % (39.3-74.2) H 04/22/17 20:15 Lymph % (Auto) 8.7 % (15.0-45.0) L 04/22/17 20:15 Izard % (Auto) 8.6 % (4.5-13.0) 04/22/17 20:15 Eos % (Auto) 0.3 % (0.6-7.6) L 04/22/17 20:15 Baso % (Auto) 0.4 % (0.3-1.7) 04/22/17 20:15 Nucleat RBC Rel Count 0.0 % (0.0-0.2) 04/22/17 20:15 Absolute Neuts (auto) 10.84 10^3/uL (1.70-6.50) H 04/22/17 20:15 Absolute Lymphs (auto) 1.16 10^3/uL (1.00-3.00) 04/22/17 20:15 Absolute Monos (auto) 1.15 10^3/uL (0.30-0.80) H 04/22/17 20:15 Absolute Eos (auto) 0.04 10^3/uL (0.03-0.40) 04/22/17 20:15 Absolute Basos (auto) 0.05 10^3/uL (0.02-0.10) 04/22/17 20:15 Absolute Nucleated RBC 0.00 10^3/uL (0-0.01) 04/22/17 20:15 Immature Gran % 0.7 % (0.0-1.1) 04/22/17 20:15 Immature Gran # 0.10 10^3/uL (0.00-0.10) 04/22/17 20:15 PT 13.8 SEC (12.0-15.0) 04/22/17 20:15 INR 1.07 (0.83-1.16) 04/22/17 20:15 APTT 30.2 SEC (23.0-38.0) 04/22/17 20:15 VBG Lactic Acid 2.0 mmol/L (0.7-2.1) 04/22/17 20:15 Sodium 130 mEq/L (134-144) L 04/22/17 20:15 Potassium 4.1 mEq/L (3.5-5.2) 04/22/17 20:15 Chloride 95 mEq/L (97-110) L 04/22/17 20:15 Carbon Dioxide 25 mEq/l (22-31) 04/22/17 20:15 Anion Gap 10 mEq/L (8-16) 04/22/17 20:15 BUN 13 mg/dL (7-23) 04/22/17 20:15 Creatinine 0.8 mg/dL (0.7-1.3) 04/22/17 20:15 Estimated GFR > 60 04/22/17 20:15 Glucose 131 mg/dL (70-100) H 04/22/17 20:15 Calcium 9.2 mg/dL (8.5-10.4) 04/22/17 20:15 Magnesium 2.0 mg/dL (1.6-2.3) 04/22/17 20:15 Total Bilirubin 0.9 mg/dL (0.1-1.4) 04/22/17 20:15 Conjugated Bilirubin 0.3 mg/dL (0.0-0.5) 04/22/17 20:15 Unconjugated Bilirubin 0.6 mg/dL (0.0-1.1) 04/22/17 20:15 AST 32 IU/L (17-59) 04/22/17 20:15 ALT 32 IU/L (21-72) 04/22/17 20:15 Alkaline Phosphatase 47 IU/L (38-126) 04/22/17 20:15 Creatine Kinase 285 IU/L (0-224) H 04/22/17 20:15 CK-MB (CK-2) Fraction 1.83 ng/mL (0-3.19) 04/22/17 20:15 CK-MB (CK-2) % 0.6 % (0.0-4.0) 04/22/17 20:15 Creatine Kinase Interp NEGATIVE (NEGATIVE) 04/22/17 20:15 Troponin I < 0.012 ng/mL (0-0.034) 04/22/17 20:15 Total Protein 6.3 g/dL (6.3-8.2) 04/22/17 20:15 Albumin 3.6 g/dL (3.5-5.0) 04/22/17 20:15 Procalcitonin 0.14 ng/mL (0.02-0.10) H 04/23/17 00:35 Urine Color YELLOW 04/22/17 20:15 Urine Appearance CLEAR 04/22/17 20:15 Urine pH 7.0 (5.0-7.5) 04/22/17 20:15 Ur Specific [place] 1.008 (1.002-1.030) 04/22/17 20:15 Urine Protein NEGATIVE (NEGATIVE) 04/22/17 20:15 Urine Ketones NEGATIVE (NEGATIVE) 04/22/17 20:15 Urine Blood NEGATIVE (NEGATIVE) 04/22/17 20:15 Urine Nitrate NEGATIVE (NEGATIVE) 04/22/17 20:15 Urine Bilirubin NEGATIVE (NEGATIVE) 04/22/17 20:15 Urine Urobilinogen NEGATIVE EU (0.2-1.0) 04/22/17 20:15 Ur Leukocyte Esterase NEGATIVE (NEGATIVE) 04/22/17 20:15 Urine Glucose NEGATIVE (NEGATIVE) 04/22/17 20:15 Visualized and Interpreted imaging results: Yes Interpretation: chest CT with right lower lobe and right middle lobe atelectasis versus pneumonia Assessment & Plan Assessment: 66-year-old male presenting with systemic inflammatory response syndrome in the setting of possible pneumonia Plan: 1. Systemic inflammatory response syndrome. Acute, new problem this provider, further workup indicated. Evidenced by tachycardia and leukocytosis, possible cause is pneumonia versus postoperative inflammation or atelectasis - monitor CBC - monitor blood cultures and sputum cultures - monitor fever curve - get EKG to ensure this is a sinus mechanism - give normal saline 150 cc an hour - send procalcitonin level determine whether chest CT markings are more indicative of atelectasis or pneumonia - empirically continue IV antibiotics notably Levaquin 750, discussed patient's presentation with Dr. Uday Moran he has reported to me that the patient has received ceftriaxone and azithromycin in the emergency department 2. Hyponatremia. Acute, most likely secondary to hypovolemia in the setting of recent surgery continue normal saline and repeat level in a.m. 3. Atelectasis. Acute, in the setting of surgery, incentive spirometer order 4. Constipation. Postoperative, placed on bowel regimen, Mag citrate in a.m. 5. Spondylolisthesis. Reviewed outside records including 04/22/[address] Bustillo, she reports the patient has spondylolisthesis with severe spinal stenosis resulting in reduced motor strength, requiring surgery, his motor strength has improved postoperatively per her report and that is consistent with tonight's exam - continue oral pain medication as previously prescribed 6. Pulmonary Nodule. Repeat chest CT as outpt Diet. Regular Prophylaxis. High risk patient, Lovenox 40 Code. Full Disposition. Anticipated discharge is 04/23/2017, pending further workup for presenting condition including subjective fever, leukocytosis, tachycardia. If patient requires greater than 48 hours inpatient hospitalization for reasonable medical necessity, he will be upgraded.
[2017-04-23] MEDS ORDERED: DIAZEPAM 5 MG TAB PO PRN (02:47)
[2017-04-23 05:13] LABS: % IMMATURE GRANULYOCYTES 0.9 % (0.0-1.1); ABSOLUTE IMMATURE GRANULOCYTES 0.11 10^3/uL (0.00-0.10); ADD DIFF? NO; ADD MORPH? NO; ADD SCAN? NO; ATYPICAL LYMPHOCYTE FLAG 20 (0-99); FRAGMENT RBC FLAG 0 (0-99); HEMATOCRIT 34.9 % (40.0-51.0); HEMOGLOBIN 11.9 g/dL (13.7-17.5); LEFT SHIFT FLG 0 (0-99); LIPEMIA HEMOLYSIS FLAG 90 (0-99); MEAN CELL HEMOGLOBIN 29.5 pg (27.9-34.1); MEAN CELL HEMOGLOBIN CONCENTR. 34.1 g/dL (32.4-36.7); MEAN CELL VOLUME 86.4 fL (81.5-99.8); MEAN PLATELET VOLUME 8.8 fL (8.7-11.7); PLATELET CLUMPS FLAG 0 (0-99); PLATELET COUNT 271 10^3/uL (150-400); RED BLOOD CELL COUNT 4.04 10^6/uL (4.40-6.38); RED CELL DISTRIBUTION WIDTH 13.8 % (11.5-15.2)
[2017-04-23 06:02] LABS: ANION GAP 9 mEq/L (8-16); CARBON DIOXIDE 24 mEq/l (22-31); CHLORIDE 99 mEq/L (97-110); CREATININE 0.8 mg/dL (0.7-1.3); GLOMERULAR FILTRATION RATE > 60; GLUCOSE 113 mg/dL (70-100); POTASSIUM 3.9 mEq/L (3.5-5.2); SODIUM 132 mEq/L (134-144)
[2017-04-23 06:15] LABS: TROPONIN I < 0.012 ng/mL (0-0.034)
[2017-04-23] MEDS: morphINE SR 15 MG TAB PO SCH ×2 (08:33→21:14)
[2017-04-23] MEDS: ENOXAPARIN 40 MG/0.4 ML SYR SC SCH (08:33)
[2017-04-23] MEDS: SENNOSIDES/DOCUSATE SODIUM TAB PO SCH ×2 (08:33→21:14)
--- NOTE | 2017-04-23 08:39 | CPEKG ---
Heart Rate: 101 RR Interval: 594 P-R Interval: 172 QRSD Interval: 112 QT Interval: 348 QTC Interval: 452 P [place]: 21 QRS Gateway: -51 T Wave Gateway: 17 EKG Severity - ABNORMAL ECG - EKG Impression: SINUS TACHYCARDIA EKG Impression: LEFT ANTERIOR FASCICULAR BLOCK Electronically Signed By: Brandon Green 23-Apr-2017 10:38:07
[2017-04-23] MEDS ORDERED: MAGNESIUM CITRATE 300 ML BOTTLE PO ONE (09:00)
[2017-04-23] MEDS ORDERED: IPRATROPIUM 0.06% NASAL SPRAY EACHNARE PRN (11:06)
[2017-04-23] MEDS ORDERED: CETIRIZINE 10 MG TAB PO PRN (11:06)
[2017-04-23] MEDS: TAMSULOSIN HCL 0.4 MG CAP PO SCH (15:15)
--- NOTE | 2017-04-23 18:24 | HOSPPROG ---
Hospitalist Progress Note Assessment/Plan: # borderline fevers - unclear etiology; empiric coverage for pna currently but doubt this - may be atelectasis; I see no wound infection, no UTI # L sided rib pain - unclear if abdominal or rib pain - will treat for constipation and follow - negative CTA (but poor contrast timing) - consider repeat imaging if not resolved # L leg edema - check US; if positive, AC needs to be discussed with Dr Bustillo # constipation, possible mild ileus - cont bowel reg, add fleets enema # urinary retention - place rider if continues to retain # recent lumbar fusion by Dr Bustillo # hyponatremia - better with IVF # pulm nodules - outpt follow-up # dispo - inpatient; needs additional diagnostic workup for unexplained fevers, rib pain; Subjective: L sided lower rib pain Objective: Vital Signs Temp Pulse Resp BP Pulse Ox 36.8 C 94 14 97/57 L 96 04/23/17 15:35 04/23/17 15:35 04/23/17 15:35 04/23/17 15:35 04/23/17 15:35 Laboratory Results 04/23/17 04:56 04/23/17 04:56 04/22/17 04/23/17 04/24/17 05:59 05:59 05:59 Intake Total 2625 2502 Output Total 1500 1000 Balance 1125 1502 PT 13.8 SEC (12.0-15.0) 04/22/17 20:15 INR 1.07 (0.83-1.16) 04/22/17 20:15 - Physical Exam Constitutional: appears nourished Cardiovascular: regular rate and rhythym, no murmur, rub, or gallop Respiratory: no respiratory distress, no rales or rhonchi, clear to auscultation Gastrointestinal: normoactive bowel sounds, soft, non-tender abdomen, no palpable masses ICD10 Worksheet Patient Problems: Problems Problem Status Onset Hypoxia Acute Pneumonia Acute Lumbar stenosis with neurogenic claudication Acute
[2017-04-23] MEDS: ACETAMINOPHEN 325 MG TAB PO PRN (18:46)
[2017-04-23] MEDS: MONTELUKAST SODIUM 10 MG TAB PO SCH (19:27)
[2017-04-24] MEDS: ACETAMINOPHEN 325 MG TAB PO PRN (05:54)
[2017-04-24 06:42] LABS: % IMMATURE GRANULYOCYTES 0.8 % (0.0-1.1); ABSOLUTE IMMATURE GRANULOCYTES 0.08 10^3/uL (0.00-0.10); ADD DIFF? NO; ADD MORPH? NO; ADD SCAN? NO; ATYPICAL LYMPHOCYTE FLAG 0 (0-99); FRAGMENT RBC FLAG 0 (0-99); HEMATOCRIT 32.2 % (40.0-51.0); LEFT SHIFT FLG 0 (0-99); LIPEMIA HEMOLYSIS FLAG 90 (0-99); MEAN CELL HEMOGLOBIN 29.7 pg (27.9-34.1); MEAN CELL HEMOGLOBIN CONCENTR. 34.2 g/dL (32.4-36.7); MEAN PLATELET VOLUME 8.6 fL (8.7-11.7); PLATELET CLUMPS FLAG 0 (0-99); PLATELET COUNT 282 10^3/uL (150-400); RED CELL DISTRIBUTION WIDTH 13.8 % (11.5-15.2)
--- NOTE | 2017-04-24 09:29 | HOSPPROG ---
Hospitalist Progress Note Assessment/Plan: # borderline fevers and leukocytosis - still no clear source, white count decreasing on abx - will plan to monitor further as an inpatient with no clear diagnosis # L sided rib pain - unclear if abdominal or rib pain - possibly better after BM - negative CTA (but poor contrast timing) - doubt PE with no hypoxia or tachycardia # L leg edema - US neg for DVT # constipation, possible mild ileus - BM last night # urinary retention - rider placed yesterday, will attempt to remove today and follow closely - cont flomax # recent lumbar fusion by Dr Bustillo - she is aware of admission # hyponatremia - better with IVF # pulm nodules - outpt follow-up Subjective: had large BM last night; rider inserted for retention; ongoing L lower chest/flank pain Objective: Vital Signs Temp Pulse Resp BP Pulse Ox 36.7 C 85 15 100/70 94 04/24/17 07:49 04/24/17 07:49 04/24/17 07:49 04/24/17 07:49 04/24/17 07:49 Laboratory Results 04/24/17 05:59 04/23/17 04/24/17 04/25/17 05:59 05:59 05:59 Output Total 1702 175 Balance -1702 -175 PT 13.8 SEC (12.0-15.0) 04/22/17 20:15 INR 1.07 (0.83-1.16) 04/22/17 20:15 - Physical Exam Constitutional: no apparent distress Cardiovascular: regular rate and rhythym, no murmur, rub, or gallop Respiratory: no respiratory distress, no rales or rhonchi, clear to auscultation Gastrointestinal: normoactive bowel sounds, soft, non-tender abdomen, no palpable masses ICD10 Worksheet Patient Problems: Problems Problem Status Onset Lumbar stenosis with neurogenic claudication Acute Hypoxia Acute Pneumonia Acute
[2017-04-24] MEDS: morphINE SR 15 MG TAB PO SCH ×2 (09:31→20:47)
[2017-04-24] MEDS: SENNOSIDES/DOCUSATE SODIUM TAB PO SCH ×2 (09:31→20:46)
[2017-04-24] MEDS: ENOXAPARIN 40 MG/0.4 ML SYR SC SCH (09:32)
[2017-04-24] MEDS: TAMSULOSIN HCL 0.4 MG CAP PO SCH (09:48)
[2017-04-24] MEDS: MONTELUKAST SODIUM 10 MG TAB PO SCH (17:33)
[2017-04-25 04:59] LABS: % IMMATURE GRANULYOCYTES 0.8 % (0.0-1.1); ABSOLUTE IMMATURE GRANULOCYTES 0.07 10^3/uL (0.00-0.10); ADD DIFF? NO; ADD MORPH? NO; ADD SCAN? NO; ATYPICAL LYMPHOCYTE FLAG 20 (0-99); FRAGMENT RBC FLAG 0 (0-99); HEMATOCRIT 30.8 % (40.0-51.0); HEMOGLOBIN 10.6 g/dL (13.7-17.5); LEFT SHIFT FLG 0 (0-99); LIPEMIA HEMOLYSIS FLAG 90 (0-99); MEAN CELL HEMOGLOBIN 29.7 pg (27.9-34.1); MEAN CELL HEMOGLOBIN CONCENTR. 34.4 g/dL (32.4-36.7); MEAN CELL VOLUME 86.3 fL (81.5-99.8); MEAN PLATELET VOLUME 8.3 fL (8.7-11.7); PLATELET CLUMPS FLAG 0 (0-99); PLATELET COUNT 284 10^3/uL (150-400); RED BLOOD CELL COUNT 3.57 10^6/uL (4.40-6.38); RED CELL DISTRIBUTION WIDTH 13.9 % (11.5-15.2)
[2017-04-25 05:21] LABS: ANION GAP 7 mEq/L (8-16); CALCIUM 8.6 mg/dL (8.5-10.4); CARBON DIOXIDE 24 mEq/l (22-31); CHLORIDE 102 mEq/L (97-110); CREATININE 0.8 mg/dL (0.7-1.3); GLOMERULAR FILTRATION RATE > 60; GLUCOSE 98 mg/dL (70-100); POTASSIUM 3.9 mEq/L (3.5-5.2); SODIUM 133 mEq/L (134-144)
[2017-04-25] MEDS: SENNOSIDES/DOCUSATE SODIUM TAB PO SCH ×2 (08:41→20:55)
[2017-04-25] MEDS: morphINE SR 15 MG TAB PO SCH ×2 (08:42→22:57)
[2017-04-25] MEDS: ENOXAPARIN 40 MG/0.4 ML SYR SC SCH (08:42)
[2017-04-25] MEDS: TAMSULOSIN HCL 0.4 MG CAP PO SCH (08:42)
--- NOTE | 2017-04-25 09:40 | HOSPPROG ---
Hospitalist Progress Note Assessment/Plan: # borderline fevers and leukocytosis - still no clear source but has improved on abx # L sided pain - was over ribs, now lower on L flank - will consider CT abd/pelvis # L leg edema - US neg for DVT # constipation, possible mild ileus - resolved # urinary retention - will d/w Dr Leyva regarding possible neurogenic etiologies; also consider d/t narcotics - dicsussed with Dr Whalen - outpt urology f/u appropriate # recent lumbar fusion by Dr Bustillo - she is aware of admission # hyponatremia - better with IVF # pulm nodules - outpt follow-up Subjective: ongoing L sided flank pain; rider had to be replaced Objective: Vital Signs Temp Pulse Resp BP Pulse Ox 36.5 C 92 18 99/69 L 92 04/25/17 07:59 04/25/17 07:59 04/25/17 07:59 04/25/17 07:59 04/25/17 07:59 Laboratory Results 04/25/17 04:40 04/25/17 04:40 04/24/17 04/25/17 04/26/17 05:59 05:59 05:59 Intake Total 2500 Output Total 1708 5945 756 Balance -1702 -25 -756 PT 13.8 SEC (12.0-15.0) 04/22/17 20:15 INR 1.07 (0.83-1.16) 04/22/17 20:15 CXR personally viewed and interpreted - Physical Exam Constitutional: no apparent distress, appears nourished Cardiovascular: regular rate and rhythym, no murmur, rub, or gallop Respiratory: no respiratory distress, no rales or rhonchi, clear to auscultation Gastrointestinal: normoactive bowel sounds, soft, non-tender abdomen, no palpable masses ICD10 Worksheet Patient Problems: Problems Problem Status Onset Lumbar stenosis with neurogenic claudication Acute Hypoxia Acute Pneumonia Acute
[2017-04-25] MEDS ORDERED: IOPAMIDOL (ISOVUE-300) 100 ML BTL ONE (10:07)
[2017-04-25] MEDS: HYDROCODONE/APAP 5/325 TAB PO PRN ×2 (13:14→19:40)
[2017-04-25] MEDS ORDERED: GADOBUTROL 10 ML VIAL IVP ONE (18:34)
[2017-04-25] MEDS: MONTELUKAST SODIUM 10 MG TAB PO SCH (19:40)
[2017-04-26] MEDS: HYDROCODONE/APAP 5/325 TAB PO PRN ×3 (02:40→13:24)
[2017-04-26] MEDS: TAMSULOSIN HCL 0.4 MG CAP PO SCH (08:09)
[2017-04-26] MEDS: SENNOSIDES/DOCUSATE SODIUM TAB PO SCH (08:09)
[2017-04-26] MEDS: ENOXAPARIN 40 MG/0.4 ML SYR SC SCH (08:09)
[2017-04-26] MEDS: morphINE SR 15 MG TAB PO SCH (08:09)
[2017-04-26 08:27] LABS: HEMATOCRIT 36.1 % (40.0-51.0)
[2017-04-26 11:40] VITALS: TEMP 97.8; O2SAT 93
--- NOTE | 2017-04-26 14:28 | PDIAF ---
- Diagnosis Diagnosis: Fever Code Status: Full Code - Medication Management Discharge Medications: Medications to Continue on Transfer Montelukast Sodium [Singulair 10 mg (*)] 10 mg PO DAILY@1800 #0 tab 04/22/17 [ Last Taken 04/22/17] Cetirizine [ZyrTEC 10 mg (*)] 10 mg PO DAILY PRN 04/23/17 [Last Taken Unknown] Ipratropium 0.06% Nasal [Atrovent 0.06% Nasal] 2 sprays EACHNARE BID PRN [Last Taken Unknown] Sennosides/Docusate Sodium [Senokot-S] 1 - 2 tab PO BID PRN 04/23/17 [Last Taken Unknown] Hydrocodone/APAP 5/325 [Frederic 5/325 (*)] 1 - 2 tab PO Q4HRS PRN #0 tab 04/26/17 [Last Taken Unknown] Polyethylene Glycol 3350 [Miralax 17 gm (*)] 17 gm PO DAILY PRN #0 pkt 04/26/17 [Last Taken Unknown] Tamsulosin HCl [Flomax 0.4 MG (*)] 0.4 mg PO DAILY cap 04/26/17 [Last Taken Unknown] levOFLOXACIN [levAQUIN (*)] 750 mg PO DAILY #1 tab 04/26/17 [Last Taken Unknown] morphINE SR [Ms Contin/Oramorph 15 mg (*)] 15 mg PO BID tab 04/26/17 [Last Taken Unknown] Care Home Antibiotics: levaquin Care Home Antibiotic Stop Date: 04/28/17 Discharge Medications: Refer to the Discharge Home Medication list for PRN reason. - Orders Services needed: Registered Nurse, Certified Button Machine Operator, Physical Therapy, Occupational Therapy - Follow Up Care Current Providers and Referrals: Patient,NotPresent [Unknown] - As per Instructions
[2017-04-26 14:51] VITALS: BP 110/67; PULSE 61; RESP 16
--- NOTE | 2017-04-26 14:53 | GDS ---
[f rep st] DISCHARGE SUMMARY DIAGNOSES: 1. Fever/leukocytosis, no clear etiology. 2. Constipation, resolved. 3. Acute urinary retention, has Cruz in place. 4. Recent lumbar fusion. 5. Hyponatremia. 6. Pulmonary nodules, needing outpatient followup. HOSPITAL COURSE: A 66-year-old man with a recent L1-S1 spinal fusion, discharged and then readmitte d the following day for fevers and hypotension. He has had an extensive workup with somewhat unclea r results. CT angiogram of his chest was negative for PE (contrast timing was poor). It did show s mall linear opacities, possibly representing pneumonia versus atelectasis. Abdomen CT scan showed n o clear etiology for his abdominal pain. A lumbar spine MRI showed a posterior fluid collection, ab out 7 cm, thought most likely to represent a seroma, cannot rule out abscess. He had a procalcitoni n which was relatively low at 0.14. Been treated empirically on Levaquin. He did have a white coun t when he presented and this has resolved. Seen by Infectious Disease, who recommends an additional day of Levaquin. He has been given warnings that if he should have recurrence of his fever or his malaise, that this would prompt a more extensive workup, including aspiration of the fluid posterior to his spine. He will need to be readmitted for this. He did have acute urinary retention. I discussed this with Dr. Leyva, who performed his surge ry. 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 I have started him on Fl omax. He should attempt to have his Cruz discontinued soon and follow up with Urology. BILLING: I spent more than 30 minutes on the day of discharge coordinating care. /[id number]/MODL
--- NOTE | 2017-04-26 18:59 | GCON ---
[f rep st] CONSULTATION INFECTIOUS DISEASE REFERRING PHYSICIAN: Eyad Mallory MD REASON FOR CONSULTATION: Postoperative fever. HPI: This is a 66-year-old male, who underwent an L1-L2 laminectomy, a TLIF, and add on to fusion L 2-S1 on 04/19/2017. The patient had a fairly unremarkable postoperative course, and was discharged to intermediate facility on April 22, but subsequently returned the following day complaining of r igors. On the day of discharge, the patient's white count was noted to be at 13, and a T-max of 37. 7. Upon rehospitalization on the , the patient's white count was similar at 12.7, with a T-max of 37.3. His white count subsequently declined on following days, 9.5 and 8.9, with a temperature t o 37.7 and 37.8 respectively. The patient was started on levofloxacin on the . Interestingly, the patient's symptoms are fairly nonlocalizing. He reports expected postoperative pain associated with his incision, but less back pain compared to preoperatively. He denies cough, shortness of gonsalo ath, headache, mouth pain, dysphagia, abdominal pain, diarrhea. In addition, complicating his cours e is urinary retention requiring placement of Cruz with inability to remove. He denies any joint p ains. He also describes some left-sided flank pain. He has undergone multiple imaging studies, including a CT chest, which showed linear opacities in th e right lower lobe and right middle lobe without evidence of a pulmonary clot. MRI of the L-spine s howed a 7 x 3.5 fluid collection that is to the right side of the operative bed, radiologically most consistent with a seroma. He has some acquired central canal stenosis at L1-L2. The patient repor ts feeling significantly better than when he was readmitted to the hospital on the , and desires to return to intermediate facility. PAST MEDICAL HISTORY: Spondylolisthesis with severe spinal stenosis. Obstructive sleep apnea, on C PAP. Hyperlipidemia. PAST SURGICAL HISTORY: Fusion by Dr. Leyva on the as per HPI. Previous L2-L4 laminectomy . Prior L4-S1 fusion. FAMILY HISTORY: Positive for diabetes and coronary artery disease. SOCIAL HISTORY: Never smoked. No alcohol. Patient is . ALLERGIES: Sulfa causes rash. MEDICATIONS: Levofloxacin 750, started 04/23/2017; Tylenol, Dulcolax, Zyrtec, Valium, milk of concepcion bell, MS Contin 15 mg twice daily, MiraLAX as needed, Senokot and Flomax. REVIEW OF SYSTEMS: A complete 10-point review of systems was performed, and is negative except as m entioned in the HPI. PHYSICAL EXAM: VITAL SIGNS: Blood pressure 110/67, heart rate 61, respiratory rate 16, saturation 93% on room air, temperature 36.6 today. GENERAL: This is a nontoxic appearing, very pleasant man s itting up in bed, in no acute distress. HEENT: Pupils are reactive bilaterally. Oropharynx moist mucous membranes. Extensive prior dental work, but no obvious dental caries. NECK: Supple. No ly mphadenopathy. CARDIOVASCULAR: Regular rate. No murmurs. Distant heart sounds. CHEST: Clear to auscultation bilaterally. ABDOMEN: Moderately obese, soft, nontender. SPINE: Incision over the lumbar spine with domenica in place without purulence or erythema surrounding the wound, nontender. NEUROLOGIC: The patient had intact lower extremity strength 5/5 throughout, and he was alert orient ed x4 with fluent speech. No neurologic deficits were noted. : Cruz was in place with clear ur ine. SKIN: No rashes. LABORATORY: White count today was not done, yesterday was 8.9, hematocrit 30, platelets of 284, 70% neutrophils, 16% lymphocytes, ESR was 71, CRP 193, procalcitonin 0.14, creatinine 0.8. Imaging as per HPI. ASSESSMENT AND PLAN: This is a 66-year-old male with low-grade temperature postoperatively and mild leukocytosis without focal signs of infection. Could consider viral syndrome, but no testing was d one on admission. Could also consider very subtle pneumonia that improved on levofloxacin. Also co uld consider atelectasis as a possible etiology of these low-grade temperatures. Reviewed MRI with Radiology and fluid collection to the right of the surgical bed, appears most clinically consistent with seroma, and in the absence of any incisional abnormalities and normal white count, would contin ue to monitor this finding clinically. In addition, would complete 1 more day of levofloxacin thera py for possible pneumonia. Reviewed with the patient MRI findings and potential evolution of infection, but at this point not e nough evidence to pursue further sampling. The patient is to monitor for signs of increasing pain, wound drainage or redness, as well as worsening fever. Thank you for this consultation. We will continue to follow as an outpatient. /[id number]/MODL
== END 2017-04-26 16:10 | DRG 864 ==
LOC: EDUNIT# → F3N 23:13 → OBSVTOIN 04-23 18:16 → F3E 04-24 18:14
PROVIDERS: ADMIT Internal Medicine; ATTEND Student in an Organized Health Care Education/Training Program
DX: R50.82 Postprocedural fever (principal); J98.11 Atelectasis; R61 Generalized hyperhidrosis; R33.9 Retention of urine, unspecified; G47.33 Obstructive sleep apnea (adult) (pediatric); E78.5 Hyperlipidemia, unspecified; Z98.1 Arthrodesis status
CPT/HCPCS: 96365; 97116-GP; 97161-GP; 97166-GO; A9585; G0378; G8978-GP-CI; G8979-GP-CI; G8987-GO-CI; G8988-GO-CI; G8989-GO-CI; J0456; J0696; J1170; J1650; J1956; Q9967